=== PATIENT | female | born 1955 | race Caucasian/White ===

== ENCOUNTER 2017-01-15 06:17 | Day surgery (SDC) | payer BC ==
[~2017-01-15] VITALS: Ht 160 cm; Wt 77.9 kg
[2017-01-15 06:35] VITALS: Ht 160 cm; Wt 77.9 kg
[2017-01-15] MEDS ORDERED: AMLO1CAP15 PO (06:59)
[2017-01-15 07:13] VITALS: BP 133/77; PULSE 54; RESP 15
[2017-01-15] MEDS ORDERED: MIDAZOLAM 1 MG/ML 2 ML INJ ONE ×2 (08:12)
[2017-01-15] MEDS ORDERED: FENTAnyl 50 MCG/ML VIAL ONE (08:12)
[2017-01-15 08:32] VITALS: BP 118/74; RESP 20
--- NOTE | 2017-01-16 08:45 | GILP ---
DATE OF PROCEDURE: 01/15/2017 PROCEDURE PERFORMED: Colonoscopy and polypectomy. SURGEON: Vasiliy Ball MD PREOP DIAGNOSIS: Positive occult blood in stool. POSTOP DIAGNOSIS: 1. Colonoscopy all the way to the cecum. 2. Transverse colon polyp was removed using the snare and electrocautery. 3. Internal hemorrhoids. INDICATION: Miss Rosina Patton is a 61-year-old female patient was noted to have positive occult blood in stool. She never had a screening colonoscopy. The procedure and possible complications were well explained to the patient. The patient understood and consented to the procedure. DESCRIPTION OF PROCEDURE: Under the influence of fentanyl and Versed, the colonoscope was carefully introduced into the rectum under direct vision and it was advanced all the way to the cecum. Findings: The patient had a transverse colon polyp and it was removed using the snare and electrocautery. The patient was noted to have internal hemorrhoids. She tolerated the procedure very well. There were no complications from the procedure. At the end of procedure, she was awake with stable vital signs, and she was discharged home to the care of her family. IMPRESSION: 1. Colonoscopy all the way to the cecum. 2. Transverse colon polyp was removed using the snare and electrocautery. 3. Internal hemorrhoids. PLAN: 1. Await histopathology report. 2. Next screening colonoscopy in five years. Dictated By: MD SPENCER Mahmood/libia/annika /Document#: [id number]
== END 2017-01-15 10:47 | disposition home or self-care (01) ==
LOC: GIL 06:17
PROVIDERS: ATTEND Internal Medicine Gastroenterology
DX: D12.3 Benign neoplasm of transverse colon (principal); K64.8 Other hemorrhoids
CPT/HCPCS: 45385; 88305; J2250; J3010; Z7610